=== PATIENT | female | born 1960 | race Caucasian/White ===

== ENCOUNTER → 2023-01-08 10:17 | Outpatient (CLI) | payer OTHER, SELFPAY ==
--- NOTE | ~2023-01-08 | DEXA_ITS ---
Bone Density Report Name: STEPHON MARTINEZ Age: 62 Sex: Female Ethnicity: White Date of : 1960 Indication: postmenopausal; screening for osteoporosis; Referring Provider: SOILA LAFLEUR Study: Bone densitometry was performed. Exam Date: January 08, 2023 Accession number: [id number] Bone Density: Region BMD T-score Z-score Classification AP Spine (L1-L4) 0.840 -1.9 -0.4 Osteopenia Femoral Neck (Left) 0.723 -1.1 0.2 Osteopenia Total Hip (Left) 0.808 -1.1 -0.1 Osteopenia Femoral Neck (Right) 0.771 -0.7 0.6 Normal Total Hip (Right) 0.931 -0.1 0.9 Normal Total Hip Mean 0.870 -0.6 0.4 Normal World Health Organization criteria for BMD impression classify patients as: Normal (T-score at or above -1.0), Osteopenia (T-score between -1.0 and -2.5), or Osteoporosis (T-score at or below -2.5). 10-year Fracture Risk(1): Major Osteoporotic Fracture 7.4% Hip Fracture 0.5% Reported Risk Factors: [place] (), Neck BMD=0.723, BMI=26.2 (1) FRAX(R) Version 3.08. Fracture probability calculated for an untreated patient. Fracture probability may be lower if the patient has received treatment. Clinical Information Provided by Patient: Has used the following medications: Vitamin D Patient maximum height was 64 Menopause Age: 59 Onset of menses at age 15 Number of children 2 Impression: The patient has low bone mass, based on the Total Spine T-score. The patient has an estimated ten-year risk of hip fracture of 0.5% and an estimated ten-year risk of major fracture of 7.4%, based on the WHO FRAX algorithm. Discussion: BONE DENSITY IS LOW AT ONE OR MORE SKELETAL SITES. This patient's lowest T-score is low at one or more skeletal sites. It meets the World Health Organization's (WHO) criteria for ?low bone mass? (T-score between -1.0 and -2.5). The patient's 10-year risk of fracture as calculated by FRAX is less than the threshold where pharmacological therapy is recommended by the National Osteoporosis Foundation (NOF). However, all treatment decisions require clinical judgment and consideration of individual patient factors, including patient preferences, comorbidities, previous drug use, risk factors not captured in the FRAX model (e.g., frailty, falls, vitamin D deficiency, increased bone turnover, interval significant decline in bone density) and possible under or overestimation of fracture risk by FRAX. The patient should follow a healthful lifestyle (good nutrition with adequate calcium and vitamin D, and appropriate weight-bearing exercise). Follow-Up: Consider repeating this study in 2 to 3 years to reassess this patient's status, or sooner if there is some new clinical indication. Reported by: [facility] on 01/08/2023 10:26:00 AM. pro [place]
== END ==
PROVIDERS: PCP Family Medicine Adolescent Medicine; Visit Provider Obstetrics & Gynecology Gynecology
DX: Z78.0 Asymptomatic menopausal state (principal); M85.88 Other specified disorders of bone density and structure, other site; M85.852 Other specified disorders of bone density and structure, left thigh
CPT/HCPCS: 77080

== ENCOUNTER 2025-04-05 02:21 | Day surgery (SDC) | payer OTHER, SELFPAY ==
[2025-03-29 14:33] VITALS: BMI 25.7
--- OUTSIDE RECORDS SUMMARY | 2025-04-05 02:24 | XMS_ITS | Clinical Summary ---
Author Organization [facility] Address [address] [place] [address] Care Team Providers Care Silver Solution Mixer Name Role Phone Sundar Gomez MD Primary Care Provider + Source Comments [facility],non-owned Affiliates and Associated Physician Practices is amultiple site organization consisting of ambulatory clinics and hospital sitesin [place], [place], [place] and [place]. This disclosure is being madepursuant to the Care Everywhere program and may not contain all information available regarding this patient. Last updated 18.[facility] Allergies No known active allergies Medications * Be aware that medications may not be up to date on this document. Alwaysverify current medications with the patient. vitamin D, ergocalciferol, (Drisdol) 1.25 MG (33255 UT) capsule Take 1 (one) capsule by mouth 07/24/2023 Active raloxifene (Evista) 60 MG tablet Take 1 (one) tablet by mouth once daily 10/13/2023 Active Nutritional Supplements (JUICE PLUS FIBRE PO) Active Probiotic Product (PROBIOTIC PO) Activ e Apoaequorin (PREVAGEN EXTRA STRENGTH PO) Active Active Problems Problem Noted Date Diagnosed Date Urinary incontinence, unspecified type 4 Family History Medical History Relation Name Comments Cancer - Colon Father CVA Mother Cancer - Colon Paternal Grandfather Relation Name Status Comments Father Mother Paternal Grandfather Social History Tobacco Use Types Packs/Day Years Used Date Smoking Tobacco: Never Smokeless Tobacco: Never Tobacco Cessation:Counseling Given: Not Answered Alcohol Use Standard Drinks/Week Comments Yes 0 (1 standard drink = 0.6 oz pur e alcohol) 1 PHQ-2 Answer Date Recorded Patient Health Questionnaire-2 Score 0 05/07/2024 Comments No Sex and Gender Information Value Date Recorded Sex Assigned at Female 12/01/2023 9:06 AM 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 OPERATOR Legal Sex Female 1:02 PM COPPER FLOTATION OPERATOR Gender Identity Female 12/01/2023 9:06 AM COPPER FLOTATION OPERATOR Sexual Orientation Straight 12/01/2023 9: 06 AM COPPER FLOTATION OPERATOR Last Filed Vital Signs Vital Sign Reading Time Taken Comments Blood Pressure 122/68 08/11/2024 9:11 AM CDT Pulse 96 02/10/2024 7:30 AM CDT Temperature 36 C (96.8 F) 08/11/2024 9:11 AM CDT Respiratory Rate 16 02/10/2024 7:30 AM CDT Oxygen Saturation 98% 02/10/2024 7:30 AM CDT Inhaled Oxygen Concentration - - Weight 65.2 kg (143 lb 12.8 oz) 08/11/2024 9:11 AM CDT Height 160 cm (5' 3) 08/11/2024 9:11 AM CDT Body Mass Index 25.47 08/11/2024 9:11 AM CDT Plan of Treatment Health Maintenance Due Date Last Done Comments COLOGUARD (AGES 45-75) - COLON CA SCREENING 1960 COLON MONITORING 1960 COLONOSCOPY - COLON CA SCREENING 1962 CT COLONOGRAPHY - COLON CA SCREENING 1960 Colorectal Cancer Screening 1962 FIT - COLON CA SCREENING 1962 FLEX SIG - COLON CA SCREENING 1962 LIPID TESTING 1960 MAMMOGRAM 1962 HIV SCREENING 1977 HEPATITIS C SCREENING 05/17/1980 DTAP/TDAP/TD VACCINES (1 - Tdap) 1981 PNEUMOCOCCAL VACCINE 50+ (1 of 1 - PCV) 2012 ZOSTER VACCINE (1 of 2) 2012 Respiratory Syncytial Virus (RSV) Vaccine Pt: or over 60 yrs (1 - Risk 60-74 years 1-dose series) 2022 COVID-19 VACCINE ( season) 2024 10/10/2022, 10/08/2021, 02/19/2021, Additional history exists DEPRESSION SCREENING 11/03/2024 03/23/2024 SCREENING FOR DIABETES 01/20/2027 01/21/2024 INFLUENZA VACCINE Completed 06/11/2024, , 07/22/2022, Additional history exists HEPATITIS B VACCINE Aged Out No longe r eligible based on patient's age to complete this topic HIB VACCINE Aged Out No longer eligi ble based on patient's age to complete this topic HPV VACCINE Aged Out No longer eligi ble based on patient's age to complete this topic MENINGOCOCCAL (Group B) VACCINE SHARED DECISION-MAKING Aged Out No longer eligible based on patient's age to complete this topic MENINGOCOCCAL GROUPS A/C/Y/W VACCINE Aged Out No longer eligible based on patient's age to complete this topic Medical Devices Implanted Type Area Cost Manager Device Identifier Shelf Expiration Date Model / Serial / Lot Sys Ureth Supp Obtryx Midurethral Trnstr Implanted:Qty: 1 on 02/09/2024 by Laura Thomson Che, MD at [facility] N/A: Vagina Red Gurumed 08/16/2026 [id number] / / [id number] Procedures Procedure Name Priority Date/Time Associated Diagnosis Comments BASIC METABOLIC PANEL (CALCIUM TOTAL) Routine 01/21/2024 10:24 AM CDT Stress incontinence Incomplete uterovaginal prolapse Pre-op testing from Last 3 Months or Most Recently Relevant to Health Maintenance Results * BASIC METABOLIC PANEL (CALCIUM TOTAL) (01/21/2024 10:24 AM CDT) Glucose 95 70 - 99 mg/dL [facility] INSURANCE BILL BUN 14 8 - 27 mg/dL [facility]URANCE BILL Creatinine 0.77 0.57 - 1.00 mg/dL [facility] INSURANCE BILL eGFR by CKD-EPI 88 >59 mL/min/1.7 3 [facility] INSURANCE BILL BUN/Creatinine Ratio 18 12 - 28 [facility] INSURANCE BILL Sodium 142 134 - 144 mmol/L [facility] INSURANCE BILL Potassium 4.2 3.5 - 5.2 mmol/L [facility] INSURANCE BILL Chloride 104 96 - 106 mmol/L [facility] INSURANCE BILL CO2 24 20 - 29 mmol/L [facility] INSURANCE BILL Calcium 9.2 8.7 - 10.3 mg/dL [facility] INSURANCE BILL Comment:FASTING Blood BLOOD SPECIMEN / Unknown 01/21/2024 10:24 AM CDT 01/21/2024 Narrative Resulting Agency Comment Lab Testing performed at: [facility] [address] [facility] [id number] [facility] Glo Thomson MD LAB - CHEMISTRY ORDERABLES Rima l Result [facility] INSURANCE BILL [address] [place] [address] from Last 3 Months or Most Recently Relevant to Health Maintenance Insurance [facility] Care Teams Silver Solution Mixer Relationship Specialty Start Date End Date Sundar Gomez MD [address] [facility] [address] [place] [address] PCP - General 12/12/22
--- OUTSIDE RECORDS SUMMARY | 2025-04-05 02:24 | XMS_ITS | Clinical Summary ---
Author Organization [facility] Address [address] [place] [address] Care Team Providers Care Continuous Improvement Facilitator Name Role Phone Sundar Gomez MD Primary Care Prov ider Allergies No known active allergies Medications raloxifene (EVISTA) 60 mg tablet Take 1 tablet (60 mg total) by mouth every morning Active ergocalciferol (VITAMIN D) 50,000 unit capsule Take 1 capsule (50,000 Units total) by mouth every 2 (two) weeks Active estradioL (ESTRACE) 0.01 % (0.1 mg/gram) vaginal cream Insert 2 g into the vagina every 3 (three) days Active glucosam/chond-m sm1/C/narinder/bor (GLUCOSAMINE-CHO ND-MSM COMPLEX ORAL) Take 1 tablet by mouth 2 (two) times a day Active Lactobacillus acidophilus (Probiotic) 10 billion cell capsule Take 1 tablet by mouth every morning Active B6/folic/B12/cof fee/phosphatid (NEURIVA PLUS ORAL) Take 1 tablet by mouth every morning Brain health Active UNABLE TO FIND Take 3 each by mouth every morning Med Name: Genius Mushrooms Active UNABLE TO FIND - ENTER DRUG NAME IN NOTES TO PHARMACY Take 2 each by mouth 2 (two) times a day Med Name: Juice plus (fruits/vegeta bles/ omega) Active HYDROcodone-acet aminophen (NORCO) 5-325 mg per tabletIndication s:Pain Take 1-2 tablets by mouth every 4 (four) hours as needed for pain for up to 30 doses 20 tablet 5 Active docusate sodium (COLACE) 100 mg capsuleIndicatio ns:constipation Take 1 capsule (100 mg total) by mouth 2 (two) times a day For constipation. 40 capsule Active Active Problems Problem Noted Date Diagnosed Date Vaginal vault prolapse after hysterectomy 2024 Stress incontinence, female 11/30/2024 Surgical History Surgery Date Site/Laterality Comments DILATION AND CURETTAGE OF UTERUS HYSTERECTOMY VAGINAL PROLAPSE REPAIR Social History Tobacco Use Types Packs/Day Years Used Date Smoking Tobacco: Never Tobacco Cessation:Counseling Given: Not Answered AUDIT-C Answer Date Recorded Q1: How often do you have a drink containing alc ohol? 2-4 times a month 12/24/2024 Q2: How many drinks containi ng alcohol do you have on a typical day when you are drinking? 1 or 2 12/24/2024 Q3: How often do you have si x or more drinks on one occasion? Never 12/24/2024 Personal Safety Answer Date Recorded Have you ever been in or are you currently in a harmful physical or emotional relationship or is someone making you feel afraid or unsafe? 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 Gender Identity Not on file Sexual Orientation Not on file Obstetrics History Last Filed Vital Signs Vital Sign Reading Time Taken Comments Blood Pressure 114/64 12/28/2024 3:00 PM HOTEL OR MOTEL ROOM SERVICE SUPERVISOR Pulse 57 12/28/2024 3:00 PM HOTEL OR MOTEL ROOM SERVICE SUPERVISOR Temperature 36.1 C (97 F) 12/28/2024 1:35 PM HOTEL OR MOTEL ROOM SERVICE SUPERVISOR Respiratory Rate 9 12/28/2024 3:00 PM HOTEL OR MOTEL ROOM SERVICE SUPERVISOR Oxygen Saturation 99% 12/28/2024 3:00 PM HOTEL OR MOTEL ROOM SERVICE SUPERVISOR Inhaled Oxygen Concentration - - Weight 65.5 kg (144 lb 6.4 oz) 12/28/2024 9:35 A M HOTEL OR MOTEL ROOM SERVICE SUPERVISOR Height 160 cm (5' 3) 12/28/2024 9:35 AM HOTEL OR MOTEL ROOM SERVICE SUPERVISOR Body Mass Index 25.58 12/28/2024 9:35 AM HOTEL OR MOTEL ROOM SERVICE SUPERVISOR Plan of Treatment Health Maintenance Due Date Last Done Comments Breast Cancer Screening-Mammogram 1960 Colon Cancer Screening-Colonoscopy 1962 Depression Screening 1962 Hepatitis C Screening 1962 Hepatitis B Screening 1980 Regular Well Visit/Exam 18-64 1980 DTaP/Tdap/Td Vaccine (2 - Td or Tdap) 06/27/2032 06/27/2022 Zoster Vaccine Completed 11/11/2022, 08/12/2022 Covid-19 Vaccine Completed 06/30/2024, 08/2023, 10/10/2022, Additional history exists Influenza Vaccine Completed 06/30/2024, , 07/22/2022, Additional history exists Pneumococcal vaccine <65 Aged Out 11/11/2024 No longer eligible based on patient's age to complete this topic Medical Devices Implanted Type Area Traveling Engineer Device Identifier Shelf Expiration Date Model / Serial / Lot CM Sistemi Upsylon 35.4cm Elongation Profile Lightweight Large Pore Low [id number] - [id number] Implanted:Qty: 1 on 12/28/2024 by Paul Rincon MD at [facility] Mesh N/A: Pelvis CM Sistemi 06/11/2027 [id number] / / [id number] [address] [place] Care Teams Continuous Improvement Facilitator Relationship Specialty Start Date End Date Sundar Gomez MD [address] [place] [address] PCP - General Family Medicine 12/21/24
--- OUTSIDE RECORDS SUMMARY | 2025-04-05 02:24 | XMS_ITS | Referral Summary ---
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 ICU RN Gender Identity Not on file Sexual Orientation Not on file Last Filed Vital Signs Vital Sign Reading Time Taken Comments Blood Pressure 114/64 12/28/2024 3:00 PM CARDIOTHORACIC ICU RN Pulse 57 12/28/2024 3:00 PM CARDIOTHORACIC ICU RN Temperature 36.1 C (97 F) 12/28/2024 1:35 PM CARDIOTHORACIC ICU RN Respiratory Rate 9 12/28/2024 3:00 PM CARDIOTHORACIC ICU RN Oxygen Saturation 99% 12/28/2024 3:00 PM CARDIOTHORACIC ICU RN Inhaled Oxygen Concentration - - Weight 65.5 kg (144 lb 6.4 oz) 12/28/2024 9:35 A M CARDIOTHORACIC ICU RN Height 160 cm (5' 3) 12/28/2024 9:35 AM CARDIOTHORACIC ICU RN Body Mass Index 25.58 12/28/2024 9:35 AM CARDIOTHORACIC ICU RN Plan of Treatment Not on file Medical Devices Implanted Type Area Toll Test Desk Worker Device Identifier Shelf Expiration Date Model / Serial / Lot Sentence Lab Armaan Upsylon 35.4cm Elongation Profile Lightweight Large Pore Low [id number] - [id number] Implanted:Qty: 1 on 12/28/2024 by Paul Rincon MD at [facility] Mesh N/A: Pelvis [employer] Armaan 06/11/2027 [id number] / / [id number] Insurance [address] [employer] [address] [employer] [place] Care Teams Map Plotter Relationship Specialty Start Date End Date Sundar Gomez MD [address] [place] [address] PCP - General Family Medicine 12/21/24
[2025-04-05 07:43] VITALS: BP 121/71; PULSE 76; RESP 17; TEMP 36.3; O2SAT 97; BMI 25.4
--- NOTE | 2025-04-05 07:46 | P.PNAN_ITS ---
Anes - Initial Pre Proc Eval Procedure: Operation Date: 04/05/25 09:00 Proposed Procedures p Screening Colonoscopy - Antonio Anderson MD Date/Time: 04/05/25 07:46 Surgeon: Antonio Anderson MD Pre Op Diagnosis: screening Patient Data Age: 64 Gender: F Height: 1.6 m Weight: 65.8 kg Allergies Allergy/AdvReac Type Severity Reaction Status Date / Time No Known Allergies Allergy Verified 04/05/25 07:42 Home Medications ?Medication ?Instructions ?Recorded ?Confirmed ?Type lactobacillus combination no.4 3 3,000 mmu cells PO DAILY 03/15/20 03/29/25 History billion cell capsule (Probiotic) glucosamine-chondroitin 250 mg-200 1 tablet PO BID 08/12/24 03/29/25 History mg tablet (Osteo Bi-Flex) nutritional supplement-fiber oral 1 ea PO DAILY 08/24/24 03/29/25 History liquid raloxifene 60 mg tablet See Rx Instructions .Route 11/30/24 03/29/25 Rx .COMPLEX #90 tabs ergocalciferol (vitamin D2) 1,250 1,250 mcg PO WEEKLY #60 caps 03/18/25 03/29/25 Rx mcg (50,000 unit) capsule B6 1.7 mg-folic 400 mcg-B12 2.4 1 cap PO DAILY 03/29/25 03/29/25 History cxk-eollii-znyoxxfvsrxo oral capsule (Neuriva Plus Brain Performance) Patient hx anesthesia problems: none Family hx anesthesia problems: none Results Review: All pre-operative results and documents have been reviewed as part of the pre- operative evaluation. [facility] Past Medical History Medical History (Updated 03/14/25 @ 13:05 by Damien Perales DO) Mild cognitive impairment Complete prolapse of vaginal vault BMI 25.0-25.9,adult Osteoarthritis of left knee Surgical History Surgical History H/O colonoscopy with polypectomy H/O: hysterectomy Family History Family History Mother Cerebrovascular accident Father Heart disease Grandparent Cancer Social History Social History Smoking status: Never smoker Second hand tobacco smoke exposure: Yes Alcohol intake: current Alcohol use details: Rarely Substance use: never Substance use type: does not use Do You Feel Safe in your Home?: Yes Lack of Transportation: No Lack of Food: Never True Current Housing: I Have Housing Concerned About Future Housing: No Difficulty Paying Gas/Electric Bills: No Difficulty Paying for Meds: No Currently Unemployed: No Education: Bachelor's Degree Difficulty w/ Childcare or Family Care: No Living arrangements: with family Additional living arrangements comments: -[place] Occupation/Education: retired Additional occupation/education comments: Gender identity (if verbalized by the patient): Female Anes - Evjun Final PreProcedure Day of Procedure 04/05/25 07:46 Patient weight: overweight Heart: regular rate and rhythm Lungs: clear to auscultation Airway: Mallampati scale class II Neurological: alert and oriented Last oral intake: >/= 8 hours ASA classification: II Emergent: no Anesthetic plan: proceed Anesthesia type and monitoring: general GIVS and standard monitoring Results Review: All pre-operative results and documents have been reviewed as part of the pre- operative evaluation. Informed Consent: The patient's anesthetic plan and its attendant risks and benefits were discussed with the patient/family/POA. Questions were solicited and answers provided to the satisfaction of the patient/family/POA.
[2025-04-05] MEDS: LACTATED RINGERS 1,000 ML 150 ML IV CONT (07:53)
--- NOTE | 2025-04-05 08:34 | PM.HPGS ---
History of Present Illness History of Present Illness Consent: Risks, benefits, and alternatives have been discussed and questions answered. Patient agrees to proceed with procedure. Chief complaint: screening Narrative: Tamie Terry is a 64 year old female with colon polyp 8 yeas ago Review of Systems Review of Systems: All systems reviewed & are unremarkable except as noted in HPI and below PMFSH Past Medical History Medical History (Updated 04/05/25 @ 08:35 by Antonio Anderson MD) Colon polyp Mild cognitive impairment Complete prolapse of vaginal vault BMI 25.0-25.9,adult Osteoarthritis of left knee Surgical History Surgical History H/O colonoscopy with polypectomy H/O: hysterectomy Family History Family History Mother Cerebrovascular accident Father Heart disease Grandparent Cancer Social History Social History Smoking status: Never smoker Second hand tobacco smoke exposure: Yes Alcohol intake: current Alcohol use details: Rarely Substance use: never Substance use type: does not use Do You Feel Safe in your Home?: Yes Lack of Transportation: No Lack of Food: Never True Current Housing: I Have Housing Concerned About Future Housing: No Difficulty Paying Gas/Electric Bills: No Difficulty Paying for Meds: No Currently Unemployed: No Education: Bachelor's Degree Difficulty w/ Childcare or Family Care: No Living arrangements: with family Additional living arrangements comments: -[place] Occupation/Education: retired Additional occupation/education comments: Gender identity (if verbalized by the patient): Female Meds Home Medications and Allergies Home Medications ?Medication ?Instructions ?Recorded ?Confirmed ?Type lactobacillus combination no.4 3 3,000 mmu cells PO DAILY 03/15/20 03/29/25 History billion cell capsule (Probiotic) glucosamine-chondroitin 250 mg-200 1 tablet PO BID 08/12/24 03/29/25 History mg tablet (Osteo Bi-Flex) nutritional supplement-fiber oral 1 ea PO DAILY 08/24/24 03/29/25 History liquid raloxifene 60 mg tablet See Rx Instructions .Route 11/30/24 03/29/25 Rx .COMPLEX #90 tabs ergocalciferol (vitamin D2) 1,250 1,250 mcg PO WEEKLY #60 caps 03/18/25 03/29/25 Rx mcg (50,000 unit) capsule B6 1.7 mg-folic 400 mcg-B12 2.4 1 cap PO DAILY 03/29/25 03/29/25 History qak-qbptwv-tfxyszfsptmu oral capsule (Neuriva Plus Brain Performance) Allergies Allergy/AdvReac Type Severity Reaction Status Date / Time No Known Allergies Allergy Verified 04/05/25 07:42 Vital Signs Vital Signs - 24 hr 04/05/25 07:43 Temperature 97.4 F L Pulse Rate 76 Respiratory Rate 17 Blood Pressure 121/71 Pulse Oximetry 97 Oxygen Delivery Room Air Exam Const: General: comfortable and no acute distress HENMT: Face/Nose/Sinus: Normal nares present Eyes: General: appearance normal, both eyes and all related structures Neck: Neck: no JVD Resp: Auscultation: clear to auscultation bilaterally Cardio: Rate: regular rate Rhythm: regular rhythm GI: Inspection: non-distended GI Palp: Yes Soft to palpation Skin: General skin exam: normal color Neuro: General: gait normal Speech: normal speech Extrem: General: normal to inspection Psych: Mental Status: mental status grossly normal Assessment and Plan Assessment and plan (1) Colon polyp: Code(s): K63.5 - Polyp of colon Status: Acute Assessment and Plan: colonoscopy
--- NOTE | 2025-04-05 08:48 | S_PTH ---
PATIENT: Tamie Terry LOC: [facility]#:[id number] AGE/SX: 64/F ROOM: RE04/05/[address]: Antonio Anderson MD : 1960 BED: DIS: 04/05/2025 SPEC #: [id number] RECD: 04/05/25 09:22 STATUS: GABI MUIR #: [id number] LIAN: 04/05/25 08:[address]: Antonio Anderson DEPT: [facility] Surgical RECD BY: Shaunna Tejeda ENTERED: 04/05/25 09:23 SP TYPE: Surgical OTHR DR: Sundar Gomez MD Tissues: A - Colon Polypectomy Procedures: Hematoxylin and Eosin Stain Gross and Microscopic Level 4
[2025-04-05 08:50] VITALS: BP 78/40; PULSE 58; RESP 13; O2SAT 97
[2025-04-05 09:00] VITALS: BP 83/43; PULSE 50; RESP 15; O2SAT 100
[2025-04-05 09:10] VITALS: BP 97/58; PULSE 52; RESP 16; O2SAT 100
[2025-04-05 09:12] VITALS: BP 100/57
== END 2025-04-05 09:26 | disposition home or self-care (01) ==
PROVIDERS: PCP Family Medicine Adolescent Medicine; Visit Provider Internal Medicine Gastroenterology
PROC: 0DJD8ZZ Inspection of Lower Intestinal Tract, Via Natural or Artificial Opening Endoscopic (ICD-10-PCS; CPT 45378; principal; 2025-04-05 09:00)
DX: Z12.11 Encounter for screening for malignant neoplasm of colon (principal); K63.5 Polyp of colon; K64.8 Other hemorrhoids; K57.30 Diverticulosis of large intestine without perforation or abscess without bleeding; G31.84 Mild cognitive impairment of uncertain or unknown etiology; M17.12 Unilateral primary osteoarthritis, left knee; Z79.810 Long term (current) use of selective estrogen receptor modulators (SERMs); Z98.890 Other specified postprocedural states; Z87.42 Personal history of other diseases of the female genital tract; Z80.9 Family history of malignant neoplasm, unspecified; Z82.49 Family history of ischemic heart disease and other diseases of the circulatory system
CPT/HCPCS: 45385; 88305; J2704; J7120

== ENCOUNTER 2025-04-29 11:42 | Outpatient (CLI) | payer OTHER, SELFPAY ==
--- NOTE | ~2025-04-29 | MM_ITS ---
EXAMINATION: MM screening preethi BI w jakub HISTORY: Screening mammogram TECHNIQUE: Craniocaudal and mediolateral oblique 3-D tomosynthesis images were obtained and synthetic 2-D images were generated. CAD analysis was submitted and interpreted. COMPARISON: 08/02/2019 BREAST PARENCHYMAL COMPOSITION:Not Dense. There are scattered areas of fibroglandular density. FINDINGS: No suspicious mass, calcification, or architectural distortion are identified in either [place] ast to suggest malignancy. There has been no suspicious interval change. IMPRESSION: No mammographic evidence of malignancy. Recommend routine screening mammography in one year. BI-RADS Category 1: Negative Reviewed, dictated and finalized at location .
== END 2025-04-29 11:43 | disposition home or self-care (01) ==
LOC: MICIMG 11:42
PROVIDERS: PCP Family Medicine; Visit Provider Obstetrics & Gynecology
DX: Z12.31 Encounter for screening mammogram for malignant neoplasm of breast (principal)
CPT/HCPCS: 77063; 77067